=== PATIENT | male | born 1970 ===

== ENCOUNTER 2018-06-22 10:34 | Emergency (ER) | payer MEDICAID, OTHER ==
[2018-06-22] MEDS: KETOROLAC 60 MG INJ IM (11:06)
[2018-06-22 11:18] LABS: ADD UMIC NO; UR ASCORBIC ACID 40 mg/dL (NEGATIVE); UR BILIRUBIN (Dip) NEGATIVE (NEGATIVE); UR BLOOD (Dip) NEGATIVE (NEGATIVE); UR CLARITY CLEAR (CLEAR); UR COLOR YELLOW (YELLOW); UR GLUCOSE (Dip) NEGATIVE (NEGATIVE); UR KETONES (Dip) NEGATIVE (NEGATIVE); UR LEUKOCYTE ESTERASE (Dip) NEGATIVE Leu/ul (NEGATIVE); UR NITRITE (Dip) NEGATIVE (NEGATIVE); UR SPECIFIC GRAVITY (Dip) 1.018 (1.003-1.030); UR TOTAL PROTEIN (Dip) NEGATIVE (NEGATIVE); UR UROBILINOGEN (Dip) NEGATIVE (NEGATIVE)
== END 2018-06-22 12:41 | disposition home or self-care (01) ==
LOC: E/R 10:34
DX: M54.5 Low back pain (principal)
CPT/HCPCS: 72100; 81003; 96372; 99284-25